=== PATIENT | male | born 1965 | race American Indian/Alaskan Native ===

== ENCOUNTER 2019-06-08 01:12 | Emergency (ER) | payer MEDICAID, OTHER ==
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
== END 2019-06-08 03:54 ==
LOC: DL.ED 01:12
DX: M25.561 Pain in right knee (principal); M54.2 Cervicalgia; V48.6XXA Car passenger injured in noncollision transport accident in traffic accident, initial encounter; Y92.410 Unspecified street and highway as the place of occurrence of the external cause
CPT/HCPCS: 70450; 72125; 73562-RT; 80305-QW; 81003; 99282; 99284-25

== ENCOUNTER 2020-01-31 21:05 | Emergency (ER) | payer OTHER ==
[2020-01-31] MEDS ORDERED: Acetaminophen/HYDROcodone 325-10 MG Tab PO ONE (21:06)
[2020-01-31 21:08] VITALS: BP 124/82; PULSE 96
[2020-01-31] MEDS ORDERED: Sodium Chloride 0.9% 1,000 ML IV ONE (21:24)
[2020-01-31] MEDS ORDERED: diphenhydrAMINE 50 MG/ML SDV IVPUSH ONE (21:26)
[2020-01-31] MEDS ORDERED: Morphine 2 MG/ML SYRINGE IVPUSH ONE (21:26)
[2020-01-31 21:59] LABS: ANION GAP 15.7 mEq/L (7-13); CHLORIDE,CL 102 mmol/L (98-107); SODIUM,NA 139 mmol/L (136-145)
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
--- NOTE | 2020-01-31 22:34 | CR ---
PROCEDURE INFORMATION: Exam: XR Soft Tissue Neck Exam date and time: 01/31/2020 10:08 PM Age: 54 years old Clinical indication: Other: Difficulty swallowing hoarse TECHNIQUE: Imaging protocol: XR of the soft tissues of the neck. COMPARISON: No relevant prior studies available. FINDINGS: Airway: The nasopharynx is unremarkable. The hypopharynx is unremarkable. Question loss of subglottic shouldering could be due to an element of laryngitis and laryngeal edema but is nonspecific. The visualized proximal trachea is unremarkable. Soft tissues: No radiopaque foreign bodies are identified. The epiglottis is normal in appearance. Prevertebral soft tissues are normal. Bones/joints: Cervical alignment is normal. No fractures. Moderate disc space narrowing C4-C5 through C6-C7 with mild-moderate marginal spurring. Lung apices: Visualized pulmonary apices are clear. Vasculature: Moderate atherosclerotic calcific plaque in the carotid bulbs. Other findings: The oropharynx is unremarkable. IMPRESSION: 1. No definite acute findings. 2. Loss of subglottic shouldering suspicious for an element of laryngeal/subglottic edema which could be seen with laryngitis but is nonspecific. 3. No radiopaque foreign bodies. 4. Normal epiglottis.
[2020-01-31] MEDS ORDERED: methylPREDNISolone Sodium Succinate 40 MG/1 ML SDV IVPUSH ONE (22:41)
[2020-01-31] MEDS ORDERED: Ketorolac 30 MG/ML SDV IVPUSH ONE (22:41)
[2020-01-31] MEDS ORDERED: Acetaminophen/HYDROcodone 325-10 MG Tab ONE (23:35)
== END 2020-01-31 23:41 | disposition home or self-care (01) ==
LOC: DL.ED 21:05
DX: R13.10 Dysphagia, unspecified (principal); R05 Cough; F17.210 Nicotine dependence, cigarettes, uncomplicated; Z20.828 Contact with and (suspected) exposure to other viral communicable diseases
CPT/HCPCS: 36415; 70360; 80053; 80307; 83605; 84484; 85025; 87040; 87081; 87430; 87635; 87804; 96361; 96374; 96375; 99284; A9270; J1200; J1885; J2270; J2920; J7030; 99283; U0002

== ENCOUNTER 2020-04-27 23:24 | Emergency (ER) | payer OTHER ==
[~2020-04-27 23:24] MED LIST: Iopamidol 612 MG/ML 100 ML Bottle IVPUSH ONE
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
[2020-04-28 00:04] LABS: ANION GAP 17.6 mEq/L (7-13); CHLORIDE,CL 98 mmol/L (98-107); SODIUM,NA 134 mmol/L (136-145)
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
--- NOTE | 2020-04-28 00:18 | CT ---
PROCEDURE INFORMATION: Exam: CT Cervical Spine Without Contrast Exam date and time: 04/27/2020 11:31 PM Age: 54 years old Clinical indication: Other: ETOH; Additional info: Roll over head injury TECHNIQUE: Imaging protocol: Computed tomography images of the cervical spine without contrast. Radiation optimization: All CT scans at this facility use at least one of these dose optimization techniques: automated exposure control; mA and/or kV adjustment per patient size (includes targeted exams where dose is matched to clinical indication); or iterative reconstruction. COMPARISON: CT Cervical Spine wo Cont 06/08/2019 2:23 AM FINDINGS: Bones/joints: No acute fracture. Normal alignment. Severe degenerative disc disease at C4-C5, C5-C6, and C6-C7. Facet and uncovertebral joint degenerative disease. Discs/Spinal canal/Neural foramina: No significant disc protrusion. No severe spinal canal stenosis. Bilateral moderate to severe foraminal stenosis at C4-C5, C5-C6, and C6-C7 secondary to osteophytic encroachment. Lungs: Emphysematous changes of the lung apices. Soft tissues: Bilateral carotid artery atherosclerotic calcium.. IMPRESSION: 1. Degenerative cervical spine disease. 2. No fracture or dislocation. 3. Biapical emphysematous lung changes. 4. Bilateral carotid artery atherosclerotic calcium 5. Stable exam in comparison with study 06/08/2019.
--- NOTE | 2020-04-28 00:27 | CT ---
PROCEDURE INFORMATION: Exam: CT Chest With Contrast; Diagnostic Exam date and time: 04/27/2020 11:30 PM Age: 54 years old Clinical indication: Other: ETOH; Additional info: Roll over head injury TECHNIQUE: Imaging protocol: Diagnostic computed tomography of the chest with intravenous contrast. Radiation optimization: All CT scans at this facility use at least one of these dose optimization techniques: automated exposure control; mA and/or kV adjustment per patient size (includes targeted exams where dose is matched to clinical indication); or iterative reconstruction. Contrast material: [id number]; Contrast volume: 100 ml; Contrast route: INTRAVENOUS (IV); COMPARISON: No relevant prior studies available. FINDINGS: Lungs: Moderate diffuse emphysematous changes are present. There is mild bilateral subpleural apical linear/irregular density likely fibrotic in nature. There is no evidence of focal pulmonary consolidation. There are minor subpleural atelectatic densities in the dependent portions of the lungs. There is no interstitial disease. Pleural space: No pleural effusion. No pneumothorax. Heart: The heart is not enlarged. Aorta: The thoracic aorta is normal. No aneurysm. No dissection. Lymph nodes: There is no evidence of lymphadenopathy. Bones/joints: There is no evidence of acute fracture. There are left anterior 7th and 8th rib fractures which appear healed. There is mild endplate sclerosis and osteophyte formation throughout the thoracic segment. Soft tissues: There is no soft tissue abnormality seen. IMPRESSION: No sign of acute trauma in the chest. PROCEDURE INFORMATION: Exam: CT Abdomen And Pelvis With Contrast Exam date and time: 04/27/2020 11:30 PM Age: 54 years old Clinical indication: Other: ETOH; Additional info: Roll over head injury TECHNIQUE: Imaging protocol: Computed tomography of the abdomen and pelvis with intravenous contrast. Radiation optimization: All CT scans at this facility use at least one of these dose optimization techniques: automated exposure control; mA and/or kV adjustment per patient size (includes targeted exams where dose is matched to clinical indication); or iterative reconstruction. Contrast material: [id number]; Contrast volume: 100 ml; Contrast route: INTRAVENOUS (IV); COMPARISON: No relevant prior studies available. FINDINGS: Liver: The liver is normal. Gallbladder and bile ducts: The gallbladder is normal. There is no evidence of biliary ductal dilation. Pancreas: The pancreas is normal. Spleen: The spleen is normal. Adrenal glands: The adrenal glands are normal. Kidneys and ureters: The kidneys are normal. No hydronephrosis. No visible calculi. Stomach and bowel: Non-specific/nonobstructive intestinal gas pattern. Appendix: The appendix is not specifically identified. There is no evidence of fluid or inflammatory stranding at the base of the cecum. Intraperitoneal space: No free air. No free fluid. Vasculature: There is no aortic aneurysm. Lymph nodes: There is no adenopathy. Urinary bladder: The bladder is moderately distended. Reproductive: The prostate and seminal vesicles are normal. Bones/joints: There is no evidence of acute fracture. Soft tissues: There is no soft tissue abnormality seen. IMPRESSION: No sign of acute trauma in the abdomen or pelvis.
== END 2020-04-28 00:33 | disposition home or self-care (01) ==
LOC: DL.ED 23:24
DX: S06.0X9A Concussion with loss of consciousness of unspecified duration, initial encounter (principal); F10.120 Alcohol abuse with intoxication, uncomplicated; Y90.8 Blood alcohol level of 240 mg/100 ml or more; V48.5XXA Car driver injured in noncollision transport accident in traffic accident, initial encounter
CPT/HCPCS: 12002; 36415; 70450; 71260; 72125; 74177; 80053; 80305-QW; 80307; 81003; 85025; 85610; 85730; 99283; 99285-25; Q9967

== ENCOUNTER 2022-12-10 08:26 | Emergency (ER) | payer BC ==
[2022-12-10] MEDS ORDERED: Sodium Chloride 0.9% 10 ML Syringe FLUSH PRN (08:33)
[2022-12-10] MEDS ORDERED: Aspirin 81 MG Tab.Chew PO ONE (08:33)
[2022-12-10 08:44] LABS: BASOPHILS PERCENT AUTO 0.6 % (0.0-1.0); EOSINOPHILS PERCENT AUTO 3.2 % (1.0-3.0); HEMATOCRIT 47.3 % (40.0-54.0); HEMOGLOBIN 16.7 g/dL (14.0-18.0); LYMPHOCYTES PERCENT AUTO 35.7 % (20.5-50.1); MEAN CORPUSCULAR HEMOGLOBIN 34.7 pg (27.0-34.0); MEAN CORPUSCULAR HGB CONC 35.3 g/dL (33.0-35.0); MEAN CORPUSCULAR VOLUME 98.3 fL (80-100); MONOCYTES PERCENT AUTO 7.9 % (2-8); NEUTROPHILS PERCENT AUTO 52.6 % (42.2-75.2); PLATELET COUNT,PLT 161 10^3/uL (150-450); RED BLOOD CELL COUNT 4.81 10^6/uL (4.6-6.2); WHITE BLOOD CELL COUNT,WBC 7.9 10^3/uL (5.0-10.0)
[2022-12-10 08:47] VITALS: BP 116/93
[2022-12-10] MEDS ORDERED: Albuterol/Ipratropium 3.0-0.5 MG/3 ML Neb Soln NEB ONE (09:01)
[2022-12-10 09:06] LABS: A/G RATIO 1.1; ALANINE AMINOTRANSFERASE,ALT 97 U/L (16-63); ALBUMIN 4.2 g/dL (3.4-5.0); ALKALINE PHOSPHATASE 136 U/L (46-116); ANION GAP 19.4 mEq/L (7-13); ASPARTATE AMNIOTRANSFERASE,AST 95 U/L (15-37); BILIRUBIN TOTAL 0.2 mg/dL (0.2-1.0); BLOOD UREA NITROGEN,BUN 9 mg/dL (7-18); BUN/CREATININE RATIO 13.4 (No establ ref range); CALCIUM 8.9 mg/dL (8.5-10.1); CARBON DIOXIDE,CO2 24 mmol/L (21-32); CHLORIDE,CL 97 mmol/L (98-107); CREATININE 0.67 mg/dL (0.70-1.30); EST CRCL DRUG DOSING (CG) 105.36 mL/min; ETHANOL BLOOD MEDICAL 240 mg/dL (0); GLUCOSE RANDOM 107 mg/dL (70-99); LIPASE 281 U/L (73-393); POTASSIUM,K 3.4 mmol/L (3.5-5.1); SODIUM,NA 137 mmol/L (136-145)
[2022-12-10 09:09] LABS: C-REACTIVE PROTEIN < 0.2 mg/dL (0.0-0.9); ESTIMATED GFR 109 mL/min (>=60)
[2022-12-10 09:12] VITALS: PULSE 113
[2022-12-10 09:15] LABS: B-TYPE NATRIURETIC PEPTIDE,BNP < 5 pg/ml (0-100)
[2022-12-10 09:16] LABS: INR 0.8 (0.9-1.2); PROTHROMBIN TIME 8.6 SEC (9.0-12.0); PTT,PARTIAL THROMBOPLSTIN TIME 24.5 SEC (22.0-34.0)
== END 2022-12-10 09:23 | disposition home or self-care (01) ==
LOC: DL.ED 08:26
DX: J44.1 Chronic obstructive pulmonary disease with (acute) exacerbation (principal); K70.9 Alcoholic liver disease, unspecified; R00.0 Tachycardia, unspecified; F17.210 Nicotine dependence, cigarettes, uncomplicated; Y90.8 Blood alcohol level of 240 mg/100 ml or more
CPT/HCPCS: 36415; 71045; 80053; 80307; 83690; 83880; 84484; 85025; 85379; 85610; 85730; 86140; 93005; 99285; A9270; 93010; 99284; J3490; J7620-GY